=== PATIENT | female | born 2000 | race Caucasian/White ===

== ENCOUNTER → 2021-12-04 | Day surgery (SDC) | payer BC ==
[~2021-12-04] VITALS: Ht 172 cm; Wt 90.0 kg
[2021-12-04] VITALS (13 sets, daily range): BP systolic 104–130; BP diastolic 68–94
[~2021-12-04] MED LIST: ACHD5005 PO; DOCU-143 PO; GLYCOPYRROLATE 0.2 MG/ML (ROBINUL) 2 ML VIAL ONE; IOHEXOL 350 MG/ML 100 ML (OMNIPAQUE 350) VIAL IV ONE; LACTATED RINGERS 1,000 ML IV ONE; LIDOCAINE PF 2% 5 ML (XYLOCAINE) VIAL ONE; LIDOCAINE/EPI 2% 1:200,00 (XYLOCAINE) 20 ML VIAL ONE; MIDAZOLAM 2 MG/2 ML (VERSED) VIAL ONE; NEOSTIGMINE (BLOXIVERZ ) 1 MG/1ML 10 ML VIAL ONE; NS 100 ML (IVPB) BAG IV ONE; ONDANSETRON 4 MG/2 ML (SDV) Z0FRAN IVP PRN; ONDANSETRON 4 MG/2 ML (SDV) Z0FRAN ONE; PROMETHAZINE INJ 25 MG/ML (PHENERGAN) AMP IVP ONE; ROCURONIUM 50 MG/5 ML (ZEMURON) VIAL IV ONE; SEVOFLURANE (ULTANE) 15 ML INHAL SOLN ONE; ceFAZolin 2 GM IV Premixed 50 ML IV NR; ceFAZolin INJECTION 2,000 MG ONE; fentaNYL INJ 100 MCG/2 ML AMP IVP ONE; fentaNYL INJ 100 MCG/2 ML AMP ONE; metroNIDAZOLE 500MG/100ML IVPB 100 ML IV NR; metroNIDAZOLE 500MG/100ML IVPB 100 ML ONE; morphine INJ 10 MG/ML 1ML (SYR OR VIAL) IVP ONE; proPOfol 200 MG/20 ML (DIPRIVAN) VIAL IV ONE
[2021-12-04 14:40] LABS: BASOPHILS % (AUTO) 0 % (0-10); EOSINOPHILS % (AUTO) 0 % (0-10); HEMATOCRIT 40 % (35-52); HEMOGLOBIN 13.2 g/dL (11.5-16.0); LYMPHOCYTES # (AUTO) 2.5 X 10^3 (1.0-4.0); LYMPHOCYTES % (AUTO) 16 % (12-44); MEAN CORPUSCULAR HEMOGLOBIN 28 pg (25-34); MEAN CORPUSCULAR HGB CONC 33 g/dL (32-36); MEAN CORPUSCULAR VOLUME 85 fL (80-99); MEAN PLATELET VOLUME 9.1 fL (9.0-12.2); MONOCYTES # (AUTO) 1.2 X 10^3 (0.0-1.0); MONOCYTES % (AUTO) 7 % (0-12); NEUTROPHILS # (AUTO) 12.1 X 10^3 (1.8-7.8); NEUTROPHILS % (AUTO) 76 % (42-75); PLATELET COUNT 372 10^3/uL (130-400); WHITE BLOOD COUNT 15.9 10^3/uL (4.3-11.0)
[2021-12-04 14:41] LABS: BILIRUBIN,URINE NEGATIVE (NEGATIVE); CLARITY,URINE CLEAR; COLOR,URINE YELLOW; GLUCOSE, URINE (UA) NEGATIVE (NEGATIVE); KETONES,URINE NEGATIVE (NEGATIVE); LEUKOCYTE ESTERASE ,URINE NEGATIVE (NEGATIVE); NITRITE,URINE NEGATIVE (NEGATIVE); PROTEIN,URINE NEGATIVE (NEGATIVE)
[2021-12-04 14:51] LABS: ALBUMIN 4.4 GM/DL (3.2-4.5); POTASSIUM 3.4 MMOL/L (3.6-5.0)
[2021-12-04 14:52] LABS: CALCIUM 9.4 MG/DL (8.5-10.1)
[2021-12-04 14:53] LABS: TOTAL PROTEIN 8.4 GM/DL (6.4-8.2)
[2021-12-04 14:54] LABS: BACTERIA,URINE TRACE /HPF
[2021-12-04 14:57] LABS: CREATININE SERUM 0.88 MG/DL (0.60-1.30)
[2021-12-04 15:25] LABS: LYMPHOCYTES % (MANUAL) 20 %; MONOCYTES % (MANUAL) 8 %; NEUTROPHILS % (MANUAL) 72 %; RBC MORPH NORMAL
--- NOTE | 2021-12-04 15:47 | Diagnostic Imaging Report ---
EXAMINATION: CT abdomen and pelvis with intravenous contrast. TECHNIQUE: Multiple contiguous axial images were obtained through the abdomen and pelvis after the uneventful administration of intravenous contrast. All CT scans use one or more of the following dose optimizing techniques: automated exposure control, MA and/or KvP adjustment based on patient size and exam type or iterative reconstruction. HISTORY: R sided abd pain, fever. COMPARISON: None available. FINDINGS: Lung bases: The lung bases are clear. Solid organs: The liver is normal without focal lesion. The gallbladder is normal. There is no biliary ductal dilation. Pancreas is normal. Spleen is normal. Adrenal glands are normal. The kidneys are normal without hydronephrosis. Bowel: The stomach and small bowel are normal without obstruction. The colon is unremarkable. The appendix is distended with wall thickening and surrounding inflammatory stranding, measuring up to 0.9 cm. Peritoneum: There is no intraperitoneal free fluid or free air. No suspicious lymphadenopathy. Vasculature: Normal without aneurysm. Musculoskeletal: No suspicious osseous lesion or compression fracture. Pelvis: The uterus and adnexa are normal. The urinary bladder is normal. IMPRESSION: Findings of acute appendicitis without abscess or free air. Dictated by: Dictated on workstation # [id number]
--- NOTE | 2021-12-04 16:24 | Consultation - Surgery ---
History of Present Illness History of Present Illness Patient Consulted On(brie/time) 12/04/21 16:18 Date Seen by Provider: Dec 04, 2021 Time Seen by Provider: 16:19 History of Present Illness seen and evaluated in er consult requested by Dr. Corey 20 year old female began having pain in rlq yesterday mid morning. continued to worsen. sharp pain. no radiation. movement makes worse. laying still made better. went to clinic last night and did not get any relief, since worsening came to er. had fever up to 101 early this morning. had some nausea and emesis. had ct scan consistent with appendicitis. Allergies and Home Medications Allergies Coded Allergies: No Known Drug Allergies (Unverified , 12/04/21) Patient Home Medication List Home Medication List Reviewed: Yes Past Nigfzqz-Uthgje-Pxfvbc Hx Patient Social History Smoking Status: Never a Smoker Have you traveled recently?: No Surgeries Surgeries: Orthopedic (left knee, right clavicle) Respiratory History of Respiratory Disorde: No Cardiovascular History of Cardiac Disorders: No Neurological History of Neurological Disord: No Genitourinary History of Genitourinary Disor: No Gastrointestinal History of Gastrointestinal Di: No Musculoskeletal History of Musculoskeletal Dis: No Endocrine History of Endocrine Disorders: No HEENT History of HEENT Disorders: No Cancer History of Cancer: No Psychosocial History of Psychiatric Problem: No Reviewed Nursing Assessment Reviewed/Agree w Nursing PMH: Yes Family Medical History Significant Family History: No Pertinent Family Hx Review of Systems-General Constitutional: No chills; fever; No weakness EENTM: No blurred vision, No double vision Respiratory: No cough, No dyspnea on exertion Cardiovascular: No chest pain, No palpitations Gastrointestinal: abdominal pain (RLQ), nausea, vomiting Genitourinary: No decreased output, No discharge Musculoskeletal: No back pain, No joint pain Skin: No change in color, No change in hair/nails Psychiatric/Neurological: Denies Anxiety, Denies Depressed, Denies Emotional Problems All Other Systems Reviewed Negative Unless Noted: Yes (Negative excepted noted.) Physical Exam-General Problems Physical Exam Vital Signs Vital Signs - First Documented 12/04/21 14:25 Temp 36.2 Pulse 139 Resp 16 B/P (MAP) 145/93 (110) Pulse Ox 99 O2 Delivery Room Air Capillary Refill : Less Than 3 Seconds General Appearance: WD/WN, mild distress HEENT: PERRL/EOMI, normal ENT inspection Neck: non-tender, supple Respiratory: chest non-tender, no respiratory distress, no accessory muscle use Cardiovascular: no JVD, tachycardia Gastrointestinal: soft, tenderness (rlq) Rectal: deferred Back: no CVA tenderness, no vertebral tenderness Extremities: non-tender, normal inspection Neurologic/Psychiatric: alert, normal mood/affect, oriented x 3 Skin: normal color, warm/dry Lymphatic: no adenopathy Data Review Labs Laboratory Tests 12/04/21 14:30: White Blood Count 15.9H, Red Blood Count 4.74, Hemoglobin 13.2, Hematocrit 40, Mean Corpuscular Volume 85, Mean Corpuscular Hemoglobin 28, Mean Corpuscular Hemoglobin Concent 33, Red Cell Distribution Width 13.1, Platelet Count 372, Mean Platelet Volume 9.1, Immature Granulocyte % (Auto) 0, Neutrophils (%) (Auto) 76H, Lymphocytes (%) (Auto) 16, Monocytes (%) (Auto) 7, Eosinophils (%) (Auto) 0, Basophils (%) (Auto) 0, Neutrophils # (Auto) 12.1H, Lymphocytes # (Auto) 2.5, Monocytes # (Auto) 1.2H, Eosinophils # (Auto) 0.0, Basophils # (Auto) 0.0, Immature Granulocyte # (Auto) 0.0, Neutrophils % (Manual) 72, Lymphocytes % (Manual) 20, Monocytes % (Manual) 8, Blood Morphology Comment NORMAL, Urine Color YELLOW, Urine Clarity CLEAR, Urine pH 6.0, Urine Specific [place] <=1.005, Urine Protein NEGATIVE, Urine Glucose (UA) NEGATIVE, Urine Ketones NEGATIVE, Urine Nitrite NEGATIVE, Urine Bilirubin NEGATIVE, Urine Urobilinogen 0.2, Urine Leukocyte Esterase NEGATIVE, Urine RBC (Auto) NEGATIVE, Urine RBC NONE, Urine WBC NONE, Urine Squamous Epithelial Cells 2-5, Urine Crystals NONE, Urine Bacteria TRACE, Urine Casts NONE, Urine Mucus NEGATIVE, Urine Culture Indicated NO, Sodium Level 139, Potassium Level 3.4L, Chloride Level 104, Carbon Dioxide Level 22, Anion Gap 13, Blood Urea Nitrogen 9, C reatinine 0.88, Estimat Glomerular Filtration Rate 95, BUN/Creatinine Ratio 10, Glucose Level 126H, Calcium Level 9.4, Corrected Calcium 9.1, Total Bilirubin 1.0, Aspartate Amino Transf (AST/SGOT) 12, Alanine Aminotransferase (ALT/SGPT) 17, Alkaline Phosphatase 61, C-Reactive Protein High Sensitivity 6.47H, Total Protein 8.4H, Albumin 4.4, Serum Test, Qualitative NEGATIVE Assessment/Plan Assessment/Plan Assessment/Plan rlq abd pain acute appendicitis patient npo iv fluids discussed risks and benefits of laparoscopic appendectomy all other indicated procedures she and family understand and wish to proceed to or. KYRA GARCIA DO Dec 04, 2021 16:24
--- NOTE | 2021-12-04 16:26 | ED Abdominal Pain ---
General Chief Complaint: Abdominal/GI Problems Stated Complaint: APPENDICITIS Nursing Triage Note: TO ROOM 09 WITH COMPLAINTS OF RIGHT LOWER ABD PAIN. WAS TOLD AT [facility] YESTERDAY SHE COULD BE CONSTIPATED. PT HAS TAKEN X2 STOOL SOFTNERS AND MIRLAX AND IS NOW HAVING DIARRHEA. CONTINUES TO HAVE THE RIGHT LOWER ABD PAIN. COVID NEG YESTERDAY. Source of Information: Patient Exam Limitations: No Limitations History of Present Illness Date Seen by Provider: Dec 04, 2021 Time Seen by Provider: 14:19 Initial Comments This 20-year-old young lady presents to the emergency room with right lower quadrant pain, nausea, and vomiting that started yesterday morning. She ate pizza yesterday afternoon and that significantly exacerbated her pain. Pain started as a vague discomfort in the periumbilical area and then became stronger in the right lower quadrant. She reports her pain is 6/10. Is worse with movement, walking, rising, and riding in the car. She vomited last night and has mild nausea now. She reports taking 2 doses of laxative after visiting the [facility] clinic yesterday. She had a bowel movement around 0300 and noted fever of 101.0 at that time. She last ate crackers at noon and drink some water around 1300. Allergies and Home Medications Allergies Coded Allergies: No Known Drug Allergies (Unverified , 12/04/21) Patient Home Medication List Home Medication List Reviewed: Yes Review of Systems Review of Systems Constitutional: see HPI EENTM: No Symptoms Reported Respiratory: No Symptoms Reported Cardiovascular: No Symptoms Reported Gastrointestinal: See HPI Genitourinary: No Symptoms Reported Musculoskeletal: no symptoms reported Skin: no symptoms reported Psychiatric/Neurological: No Symptoms Reported Endocrine: No Symptoms Reported Hematologic/Lymphatic: No Symptoms Reported Past Hjpzchv-Xqfwut-Bsvqwk Hx Patient Social History Tobacco Use?: No Smoking Status: Never a Smoker Use of E-Cig and/or Vaping dev: Yes Substance use?: No Alcohol Use?: Yes Alcohol Frequency: Rarely Immunizations Up To Date Second COVID19 Vaccination Keron: UNKNOWN DATE 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 oz. kg; 30.00 BMI Method: General Appearance: WD/WN, no apparent distress HEENT: PERRL/EOMI, normal ENT inspection Neck: normal inspection Respiratory: lungs clear, normal breath sounds, no respiratory distress Cardiovascular: no edema, no murmur, tachycardia (Regular) Gastrointestinal: soft, abnormal bowel sounds (Decreased); No rebound; tenderness (Tenderness throughout the right abdomen, worse in the right lower quadrant. Tenderness to percussion in the right lower quadrant. Positive Rovsing.) Extremities: normal inspection, no pedal edema Neurologic/Psychiatric: no motor/sensory deficits, alert, normal mood/affect, oriented x 3 Skin: normal color, warm/dry Progress/Results/Core Measures Results/Orders Lab Results Laboratory Tests Test 12/04/21 14:30 Range/Units White Blood Count 15.9 H 4.3-11.0 10^3/uL Red Blood Count 4.74 3.80-5.11 10^6/uL Hemoglobin 13.2 11.5-16.0 g/dL Hematocrit 40 35-52 % Mean Corpuscular Volume 85 80-99 fL Mean Corpuscular Hemoglobin 28 25-34 pg Mean Corpuscular Hemoglobin Concent 33 32-36 g/dL Red Cell Distribution Width 13.1 10.0-14.5 % Platelet Count 372 130-400 10^3/uL Mean Platelet Volume 9.1 9.0-12.2 fL Immature Granulocyte % (Auto) 0 % Neutrophils (%) (Auto) 76 H 42-75 % Lymphocytes (%) (Auto) 16 12-44 % Monocytes (%) (Auto) 7 0-12 % Eosinophils (%) (Auto) 0 0-10 % Basophils (%) (Auto) 0 0-10 % Neutrophils # (Auto) 12.1 H 1.8-7.8 X 10^3 Lymphocytes # (Auto) 2.5 1.0-4.0 X 10^3 Monocytes # (Auto) 1.2 H 0.0-1.0 X 10^3 Eosinophils # (Auto) 0.0 0.0-0.3 10^3/uL Basophils # (Auto) 0.0 0.0-0.1 10^3/uL Immature Granulocyte # (Auto) 0.0 0.0-0.1 10^3/uL Neutrophils % (Manual) 72 % Lymphocytes % (Manual) 20 % Monocytes % (Manual) 8 % Blood Morphology Comment NORMAL Urine Color YELLOW Urine Clarity CLEAR Urine pH 6.0 5-9 Urine Specific Pratts <=1.005 1.016-1.022 Urine Protein NEGATIVE NEGATIVE Urine Glucose (UA) NEGATIVE NEGATIVE Urine Ketones NEGATIVE NEGATIVE Urine Nitrite NEGATIVE NEGATIVE Urine Bilirubin NEGATIVE NEGATIVE Urine Urobilinogen 0.2 < = 1.0 MG/DL Urine Leukocyte Esterase NEGATIVE NEGATIVE Urine RBC (Auto) NEGATIVE NEGATIVE Urine RBC NONE /HPF Urine WBC NONE /HPF Urine Squamous Epithelial Cells 2-5 /HPF Urine Crystals NONE /LPF Urine Bacteria TRACE /HPF Urine Casts NONE /LPF Urine Mucus NEGATIVE /LPF Urine Culture Indicated NO Sodium Level 139 135-145 MMOL/L Potassium Level 3.4 L 3.6-5.0 MMOL/L Chloride Level 104 98-107 MMOL/L Carbon Dioxide Level 22 21-32 MMOL/L Anion Gap 13 5-14 MMOL/L Blood Urea Nitrogen 9 7-18 MG/DL Creatinine 0.88 0.60-1.30 MG/DL Estimat Glomerular Filtration Rate 95 BUN/Creatinine Ratio 10 Glucose Level 126 H 70-105 MG/DL Calcium Level 9.4 8.5-10.1 MG/DL Corrected Calcium 9.1 8.5-10.1 MG/DL Total Bilirubin 1.0 0.1-1.0 MG/DL Aspartate Amino Transf (AST/SGOT) 12 5-34 U/L Alanine Aminotransferase (ALT/SGPT) 17 0-55 U/L Alkaline Phosphatase 61 40-136 U/L C-Reactive Protein High Sensitivity 6.47 H 0.00-0.50 MG/DL Total Protein 8.4 H 6.4-8.2 GM/DL Albumin 4.4 3.2-4.5 GM/DL Serum Test, Qualitative NEGATIVE NEGATIVE My Orders Orders - ROXANNE BRIONES MD Cbc With Automated Diff (12/04/21 14:20) Comprehensive Metabolic Panel (12/04/21 14:20) Hs C Reactive Protein (12/04/21 14:20) Hcg,Qualitative Serum (12/04/21 14:20) Ua Culture If Indicated (12/04/21 14:20) Ed Iv/Invasive Line Start (12/04/21 14:20) Manual Differential (12/04/21 14:30) Lactated Ringers (Lr 1000 Ml Iv Solution (12/04/21 15:00) Ct Abdomen/Pelvis W (12/04/21 15:14) Fentanyl Inj (Sublimaze Injection) (12/04/21 15:30) Iohexol Injection (Omnipaque 350 Mg/Ml 1 (12/04/21 15:30) Ns (Ivpb) (Sodium Chloride 0.9% Ivpb Bag (12/04/21 15:30) Medications Given in ED Current Medications Medications Dose Ordered Sig/Elmer Route Start Time Stop Time Status Last Admin Dose Admin Fentanyl Citrate 50 mcg ONCE ONCE IVP 12/04/21 15:30 12/04/21 15:31 DC 12/04/21 15:23 50 MCG Iohexol 100 ml ONCE ONCE IV 12/04/21 15:30 12/04/21 15:31 DC 12/04/21 15:32 100 ML Lactated Ringer's 1,000 ml @ 0 mls/hr Q0M ONCE IV 12/04/21 15:00 12/04/21 15:01 DC 12/04/21 15:03 1,000 MLS/HR Sodium Chloride 100 ml ONCE ONCE IV 12/04/21 15:30 12/04/21 15:31 DC 12/04/21 15:33 80 ML Vital Signs/I&O 12/04/21 14:25 Temp 36.2 Pulse 139 Resp 16 B/P (MAP) 145/93 (110) Pulse Ox 99 O2 Delivery Room Air Blood Pressure Mean: 110 Progress Progress Note : Progress Note Patient was hydrated with a liter of IV fluid. Pain was treated with fentanyl. I discussed risks and benefits of CT including risks of radiation exposure, contrast dye exposure, and cost. Patient elected to proceed with CT scan which revealed acute appendicitis. Case was discussed with Dr. Gunter proceeded to arrange surgery. Diagnostic Imaging Diagonstic Imaging: CT Plain Films/CT/US/NM/MRI: abdomen, pelvis Comments CT abdomen pelvis viewed by me and report reviewed. Discussed with and reviewed with Dr. Gunter. See report below: NAME: STEPH DE GUZMAN [facility] REC#: [id number] PT [place]US[place] [facility] [place] 2000 PHYSICIAN: ROXANNE BRIONES MD ADMIT DATE: 12/04/21/[facility] [place] Date of Exam:12/04/21 CT ABDOMEN/PELVIS W EXAMINATION: CT abdomen and pelvis with intravenous contrast. TECHNIQUE: Multiple contiguous axial images were obtained through the abdomen and pelvis after the uneventful administration of intravenous contrast. All CT scans use one or more of the following dose optimizing techniques: automated exposure control, MA and/or KvP adjustment based on patient size and exam type or iterative reconstruction. HISTORY: R sided abd pain, fever. COMPARISON: None available. FINDINGS: Lung bases: The lung bases are clear. Solid organs: The liver is normal without focal lesion. The gallbladder is normal. There is no biliary ductal dilation. Pancreas is normal. Spleen is normal. Adrenal glands are normal. The kidneys are normal without hydronephrosis. Bowel: The stomach and small bowel are normal without obstruction. The colon is unremarkable. The appendix is distended with wall thickening and surrounding inflammatory stranding, measuring up to 0.9 cm. Peritoneum: There is no intraperitoneal free fluid or free air. No suspicious lymphadenopathy. Vasculature: Normal without aneurysm. Musculoskeletal: No suspicious osseous lesion or compression fracture. Pelvis: The uterus and adnexa are normal. The urinary bladder is normal. IMPRESSION: Findings of acute appendicitis without abscess or free air. Dictated by: Dictated on workstation # [id number] Dict: 12/04/21 1536 Trans: 12/04/[address] [facility] [id number] Interpreted by: SRAVANTHI DANIELS DO Electronically signed by: SRAVANTHI DANIELS DO 12/04/21 1602 Departure Communication (Admissions) Time/Spoke to Admitting Phy: 15:40 Dr. Gunter Impression Primary Impression: Acute appendicitis Qualified Codes: K35.30 - Acute appendicitis with localized peritonitis, without perforation or gangrene Disposition: ADMITTED INPATIENT Condition: Stable Admissions Decision to Admit Reason: Admit from ER (General) Decision to Admit/Date: Dec 04, 2021 Time/Decision to Admit Time: 15:40 Departure-Patient Inst. Referrals: [facility] [place] Primary Care Physician JENNIFER CARUSO APRN (Family) Primary Care Physician ROXANNE BRIONES MD Dec 04, 2021 16:26
[2021-12-04] MEDS: LACTATED RINGERS 1,000 ML IV PRN ×2 (16:47→17:28)
--- NOTE | 2021-12-04 17:40 | Discharge Inst-Simple/Standard ---
Discharge Inst-Standard Discharge Medications New, Converted or Re-Newed RX: Transmitted to Pharmacy Patient Instructions/Follow Up Plan of Care/Instructions/FU: 2 weeks Jani Activity as Tolerated: No Discharge Diet: Regular Diet Other Inst to Patient Follow up Appt: Make appointment for 2 week. Instructions: No lifting greater than 10 pounds. No strenuous activity. May shower in 24 hours, no tub bath or soaking. Use incentive spirometer at home as directed. No Smoking Skin/Wound Care: You have special glue over your incision that will fall off on it's own. Symptoms to Report: Appetite Changes, Extremity Discoloration, Numbness/Tingling, Swelling Increased, Bleeding Excessive, Eyesight Changes, Pain Increased, Urine Color Change, Constipation(Persistent), Fever over 101 degree F, Pain/Pressure in chest, Urinating Difficulty, Cough Up/Vomit Blood, Heart Beat Irreg/Pounding, Pain/Pressure in jaw, Vaginal Bleeding Increase, Cramps in feet or legs, Lightheadedness, Pain/Pressure in shoulder, Diarrhea(Persistent), Memory Changes Suddenly, Questions/Concerns, Weight gain consecutive days, Dizziness/Fainting, Nausea/Vomiting, Shortness of Breath, Weight gain over 2 pounds If questions or concerns contact your physician Or seek help at emergency department. KYRA GARCIA DO Dec 04, 2021 17:40
--- NOTE | 2021-12-04 17:42 | Progress Note-Post Operative ---
Post-Operative Progess Note Surgeon (s)/Waistline Joiner Overlock (s) Surgeon KYRA GARCIA DO Waistline Joiner Overlock: na Pre-Operative Diagnosis rlq abd pain, acute appendicitis Post-Operative Diagnosis same Procedure & Operative Findings Date of Procedure 12/04/21 Procedure Performed/Findings PROCEDURE: Laparoscopic appendectomy. COMPLICATIONS: None. INDICATIONS: The patient is a 20 year old female who has been having right lower quadrant abdominal pain. Patient's exam consistent with appendicitis. I discussed risk and benefits of laparoscopic appendectomy and all indicated procedures with the possibility being a normal appendix. The patient understands the risks and benefits and wishes to proceed. Consent was signed on the chart. DESCRIPTION OF PROCEDURE: The patient was taken to the operating suite, prepped and draped in a sterile fashion. Timeout was performed. Local anesthetic was infiltrated just above the umbilicus and 11-blade scalpel was used to make a skin incision. Cautery was used to dissect down to the fascia and scored. Kochers were used to grasp and elevate it and the abdomen was then entered. A 0 Vicryl was placed in a [id number] fashion for closure at the end of the case. The balloon trocar was inserted into the abdomen and pneumoperitoneum was achieved. Under direct visualization of the laparoscope, a 5 mm trocar was placed in the suprapubic region and a 5 mm trocar was placed in the left lower quadrant. Appendix was located, Inflamed appendix. The base of the appendix was dissected around. Once at the base an Endo-STIVEN 2.5 stapler was then fired across the base of the appendix. The mesoappendix was then divided. It was then placed in an Endobag and removed through the 12 mm trocar site. The abdomen was then irrigated and suctioned. No other pathology noted. The abdomen was then desufflated and the trocars were removed. The 0 Vicryl placed at the beginning of the case was then tied closing the 12 mm fascial defect. The skin was then closed using 4-0 Monocryl in a subcuticular fashion. The abdomen was then washed and dried and Skin Affix was placed over the incisions. The patient tolerated the procedure well without any complications and was taken to the recovery room in stable condition. Anesthesia Type general Estimated Blood Loss Estimated blood loss (mL): minimal Specimens/Packing Specimens Removed appendix KYRA GARCIA DO Dec 04, 2021 17:42
--- NOTE | 2021-12-04 18:08 | Anesthesia-General Post-Op ---
General Patient Condition Mental Status/LOC: Same as Preop Cardiovascular: Satisfactory Nausea/Vomiting: Absent Respiratory: Satisfactory Pain: Controlled Complications: Absent Post Op Complications Complications None Follow Up Care/Instructions Patient Instructions None needed. Anesthesia/Patient Condition Patient Condition Patient is doing well, no complaints, stable vital signs, no apparent adverse anesthesia problems. No complications reported per nursing. JASMIN GÓMEZ CRNA Dec 04, 2021 18:08
== END ==
LOC: EDUNIT# 14:09 → ER 14:11 → SDC 15:54
PROVIDERS: ATTEND Surgery
DX: K35.30 Acute appendicitis with localized peritonitis, without perforation or gangrene (principal); E66.9 Obesity, unspecified; Z68.30 Body mass index [BMI] 30.0-30.9, adult; F17.290 Nicotine dependence, other tobacco product, uncomplicated
CPT/HCPCS: 36415; 74177; 80053; 81000; 84703; 85007; 85027; 86141; 96361; 96374